=== PATIENT | male | born 1990 | race Caucasian/White ===

== ENCOUNTER 2018-10-25 11:12 | Emergency (ER) | payer BC, OTHER ==
[~2018-10-25] VITALS: Ht 177.8 cm; Wt 155.0 kg
[2018-10-25] MEDS ORDERED: LORazepam 2 mg/ml vial IM ONE (11:15)
[2018-10-25] MEDS ORDERED: LORazepam 2 mg/ml vial ONE (11:18)
[2018-10-25 11:27] LABS: BASOPHILS # (AUTO) 0.1 X10'3 (0-0.2); BASOPHILS % (AUTO) 0.4 % (0-1); EOSINOPHILS # (AUTO) 0.2 X10'3 (0-0.9); EOSINOPHILS % (AUTO) 1.5 % (0-6); HEMATOCRIT 45.7 % (42.0-52.0); HEMOGLOBIN 15.6 g/dl (14.0-17.9); LYMPHOCYTES # (AUTO) 1.6 X10'3 (1.1-4.8); LYMPHOCYTES % (AUTO) 11.5 % (21-51); MEAN CORPUSCULAR HEMOGLOBIN 31.2 PG (27.0-31.0); MEAN CORPUSCULAR HGB CONC 34.1 % (33.0-36.5); MEAN CORPUSCULAR VOLUME 91.6 FL (78-98); MEAN PLATELET VOLUME 8.4 FL (7.4-10.4); MONOCYTES # (AUTO) 1.1 X10'3 (0-0.9); MONOCYTES % (AUTO) 7.7 % (2-12); NEUTROPHILS # (AUTO) 11.1 X10'3 (1.8-7.7); NEUTROPHILS % (AUTO) 78.9 % (42-75); PLATELET COUNT 418 X10'3 (140-440); RED BLOOD COUNT 4.99 X10'6 (4.70-6.10); RED CELL DISTRIBUTION WIDTH 13.5 % (11.5-14.5)
[2018-10-25 11:29] LABS: CLARITY,URINE CLEAR (Clear); COLOR,URINE STRAW (Yellow); GLUCOSE, URINE NEGATIVE (Neg); KETONES,URINE TRACE mg/dl (Neg); LEUKOCYTE ESTERASE ,URINE NEGATIVE (Neg); NITRITES, URINE NEGATIVE (Neg); OCCULT BLOOD,URINE NEGATIVE (Neg); PROTEIN,URINE NEGATIVE (Neg); UROBILINOGEN,URINE 0.2 E.U/dL (0.2-1.0)
[2018-10-25 11:30] LABS: UA COLLECTION TYPE STRAIGHT CATH
[2018-10-25 11:40] LABS: ALANINE AMINOTRANSFERASE 27 U/L (12-78); ALBUMIN 4.5 G/DL (3.4-5.0); ALBUMIN/GLOBULIN RATIO 1.2 (1.1-1.5); ALKALINE PHOSPHATASE 52 IU/L (46-116); ANION GAP 18 (8-16); ASPARTATE AMINO TRANSFERASE 29 U/L (10-37); BILIRUBIN,TOTAL 0.8 MG/DL (0.1-1.0); BLOOD UREA NITROGEN 13 MG/DL (7-18); CHLORIDE 98 MMOL/L (99-107); CREATINE KINASE 353 U/L (39-308); CREATININE 1.63 MG/DL (0.60-1.10); ETHANOL < 0.010 GM/DL (0.0-0.010); GLUCOSE 270 MG/DL (70-104); POTASSIUM 3.1 MMOL/L (3.5-5.1); SODIUM 135 MMOL/L (135-145); TOTAL CARBON DIOXIDE 19.4 MMOL/L (24-32); TOTAL PROTEIN 8.3 G/DL (6.4-8.2); eGFR 50 ML/MIN
[2018-10-25 11:42] LABS: URINE AMPHETAMINE SCREEN NEGATIVE (Neg); URINE BARBITUATE SCREEN NEGATIVE (Neg); URINE BENZODIAZEPINES SCREEN NEGATIVE (Neg); URINE CANNABINOID SCREEN POSITIVE (Neg); URINE COCAINE SCREEN NEGATIVE (Neg); URINE METHADONE SCREEN NEGATIVE (Neg); URINE OPIATE SCREEN NEGATIVE (Neg); URINE PHENCYCLIDINE SCREEN NEGATIVE (Neg)
[2018-10-25] MEDS ORDERED: normal saline 1000ML IV soln IV ONE (11:45)
[2018-10-25] MEDS ORDERED: potassium Cl oral solution 20 MEQ/15 ML PO ONE (11:45)
--- NOTE | 2018-10-25 11:57 | NUR ---
PT HAVING SOME GENERALIZED PAIN, RECEIVED VERBAL ORDER FROM TOD AGUILERA FOR 650 MG TYLENOL ONCE NOW, PT IS CALM, AND COOPERATIVE, NO S/S OF AGITATION AT THIS TIME, MEDICATED PT WITH NS IV FLUIDS PER ORDERS, TWO [facility] OFFICERS AND HOSP SECURITY STAFF REMAIN AT BEDSIDE.
[2018-10-25] MEDS ORDERED: acetaminophen 325mg tablet PO ONE (12:00)
--- NOTE | 2018-10-25 12:08 | NUR ---
RELIEVING RN FOR LUNCH, PT IS RESTING QUIETLY ON GURNEY, CALM AND COOPERATIVE, 2LITERS NS INFUSING W/O
[2018-10-25 12:58] VITALS: BP 113/59
== END 2018-10-25 13:15 | disposition home or self-care (01) ==
LOC: ER 11:13
DX: Z04.1 Encounter for examination and observation following transport accident (principal); E86.0 Dehydration; F12.90 Cannabis use, unspecified, uncomplicated; F31.9 Bipolar disorder, unspecified; Z88.6 Allergy status to analgesic agent; V49.88XA Car occupant (driver) (passenger) injured in other specified transport accidents, initial encounter; Y93.89 Activity, other specified; Y92.413 State road as the place of occurrence of the external cause; Y99.9 Unspecified external cause status
CPT/HCPCS: 36415; 80053; 80305; 80320; 81003; 82550; 85025; 93005; 96360; 96372; 99284; J2060; J7030; P9612

== ENCOUNTER 2018-10-26 23:41 | Emergency (ER) | payer BC, OTHER ==
[~2018-10-26] VITALS: Ht 175.3 cm; Wt 75.0 kg
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
[2018-10-27 00:54] LABS: URINE AMPHETAMINE SCREEN NEGATIVE (Neg); URINE BARBITUATE SCREEN NEGATIVE (Neg); URINE BENZODIAZEPINES SCREEN NEGATIVE (Neg); URINE CANNABINOID SCREEN POSITIVE (Neg); URINE COCAINE SCREEN NEGATIVE (Neg); URINE METHADONE SCREEN NEGATIVE (Neg); URINE OPIATE SCREEN NEGATIVE (Neg); URINE PHENCYCLIDINE SCREEN NEGATIVE (Neg)
[2018-10-27] MEDS ORDERED: LAMO100T89 PO (00:54)
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
[2018-10-27 01:10] LABS: BASOPHILS % (AUTO) 0.4 % (0-1); EOSINOPHILS # (AUTO) 0.1 X10'3 (0-0.9); EOSINOPHILS % (AUTO) 1.2 % (0-6); HEMATOCRIT 38.9 % (42.0-52.0); HEMOGLOBIN 13.5 g/dl (14.0-17.9); LYMPHOCYTES # (AUTO) 1.3 X10'3 (1.1-4.8); LYMPHOCYTES % (AUTO) 13.6 % (21-51); MEAN CORPUSCULAR HEMOGLOBIN 31.8 PG (27.0-31.0); MEAN CORPUSCULAR HGB CONC 34.7 % (33.0-36.5); MEAN CORPUSCULAR VOLUME 91.7 FL (78-98); MEAN PLATELET VOLUME 8.8 FL (7.4-10.4); MONOCYTES # (AUTO) 0.7 X10'3 (0-0.9); MONOCYTES % (AUTO) 6.9 % (2-12); NEUTROPHILS # (AUTO) 7.5 X10'3 (1.8-7.7); NEUTROPHILS % (AUTO) 77.9 % (42-75); PLATELET COUNT 246 X10'3 (140-440); RED BLOOD COUNT 4.24 X10'6 (4.70-6.10); RED CELL DISTRIBUTION WIDTH 13.4 % (11.5-14.5); WHITE BLOOD COUNT 9.6 X10'3 (4.5-11.0)
[2018-10-27 01:30] LABS: ALANINE AMINOTRANSFERASE 30 U/L (12-78); ALBUMIN 3.5 G/DL (3.4-5.0); ALKALINE PHOSPHATASE 40 IU/L (46-116); ANION GAP 10 (8-16); ASPARTATE AMINO TRANSFERASE 44 U/L (10-37); BILIRUBIN,TOTAL 0.6 MG/DL (0.1-1.0); BLOOD UREA NITROGEN 10 MG/DL (7-18); BUN/CREATININE RATIO 11.8 (5.4-32.0); CALCIUM 8.5 MG/DL (8.5-10.1); CHLORIDE 102 MMOL/L (99-107); CREATININE 0.85 MG/DL (0.60-1.10); GLUCOSE 115 MG/DL (70-104); POTASSIUM 3.8 MMOL/L (3.5-5.1); SODIUM 137 MMOL/L (135-145); TOTAL CARBON DIOXIDE 25.2 MMOL/L (24-32); TOTAL PROTEIN 6.9 G/DL (6.4-8.2); eGFR > 90 ML/MIN
[2018-10-27 01:37] LABS: ACETAMINOPHEN 4.1 UG/ML (10-30); ETHANOL < 0.010 GM/DL (0.0-0.010)
--- NOTE | 2018-10-27 02:09 | NUR ---
Pt up used the restroom and returned to bed.
[2018-10-27] MEDS ORDERED: diphenhydrAMINE 25mg capsule PO ONE (02:10)
[2018-10-27] MEDS ORDERED: LORazepam 0.5 MG tablet PO PRN (05:00)
[2018-10-27] MEDS ORDERED: LORazepam 2 mg/ml vial IM PRN (05:00)
[2018-10-27] MEDS ORDERED: ziprasidone IM 20mg inj **IM only IM PRN (05:00)
[2018-10-27] MEDS ORDERED: ziprasidone 20mg capsule PO PRN (05:00)
[2018-10-27 05:56] VITALS: BP 105/57
[2018-10-27] MEDS ORDERED: ZIPR20CA2 PO (07:08)
--- NOTE | 2018-10-27 07:50 | NUR ---
Patient in bed sleeping, appears comfortable. RN has close observation of patient
--- NOTE | 2018-10-27 11:09 | NUR ---
PATIENTS PARENTS AT BEDSIDE. FATHER SHARED WITH RN THAT PATIENT IS FEELING ANXIOUS. RN COMFIRMED WITH PATIENT THAT HE IS ANXIOUS. RN MEDICATED PATIENT WITH 2 MG OF ATIVAN PO. RN WILL CONTINUE TO MONITOR
[2018-10-27] MEDS ORDERED: LORA1TAB PO (12:07)
--- NOTE | 2018-10-27 12:18 | NUR ---
PATIENT IS BEING DISCHARGED. PARENTS AT BEDSIDE AND HE WILL BE LEAVING WITH HIS PARENTS. HE WILL FOLLOW UP WITH DR. RAMÍREZ. PATIENT HAS A PLAN TO CHANGE HIS LIVING SITUATION AND FOLLOW UP WITH DR. RAMÍREZ. PATIENT IS STABLE AT TIME OF DISCHARGE.
[2018-10-27] MEDS ORDERED: lamoTRIgine 100mg tablet PO SCH (21:00)
[2018-10-28] MEDS ORDERED: lamoTRIgine 100mg tablet PO SCH (08:00)
== END 2018-10-27 12:32 ==
LOC: ER 23:42
DX: F31.9 Bipolar disorder, unspecified (principal); F12.90 Cannabis use, unspecified, uncomplicated; Z88.8 Allergy status to other drugs, medicaments and biological substances
CPT/HCPCS: 36415; 80053; 80305; 80320; 80329; 84443; 85025; 99285; Q0163